=== PATIENT | female | born 1960 | race Caucasian/White ===

== ENCOUNTER 2019-09-01 10:00 | Day surgery (SDC) | payer OTHER ==
[~2019-09-01] VITALS: Ht 154.9 cm; Wt 61.7 kg
[2019-09-01] MEDS ORDERED: LIDOCAINE 2% 100 MG/5 ML UJET TP ONE (12:14)
[2019-09-01] MEDS ORDERED: fentaNYL 0.05 MG/ML VIAL ONE (12:14)
[2019-09-01] MEDS ORDERED: fentaNYL 0.05 MG/ML VIAL IVP ONE (12:55)
== END 2019-09-01 13:35 | disposition home or self-care (01) ==
LOC: MMU 10:00 → MDS 10:00
PROVIDERS: ATTEND Internal Medicine Gastroenterology
DX: Z12.11 Encounter for screening for malignant neoplasm of colon (principal); K57.30 Diverticulosis of large intestine without perforation or abscess without bleeding; E78.00 Pure hypercholesterolemia, unspecified; I10 Essential (primary) hypertension; E66.3 Overweight
CPT/HCPCS: 45378; J3010